=== PATIENT | male | born 1940 | race Caucasian/White ===

== ENCOUNTER → 2018-03-10 | Outpatient (CLI) | payer MEDICARE, OTHER ==
[~2018-03-10] MED LIST: CAND16TA2 PO; GLIM4TAB2 PO; LOVA40TA2 PO
== END | disposition home or self-care (01) ==
LOC: CACL 09:37 → EDSTATUS 12:15
PROVIDERS: ATTEND Internal Medicine Cardiovascular Disease
DX: Z02.9 Encounter for administrative examinations, unspecified (principal); Z53.9 Procedure and treatment not carried out, unspecified reason
CPT/HCPCS: 85060; 85097; 88184; 88185; 88237; 88264; 88280; 88305; 88311

== ENCOUNTER 2018-08-29 12:05 | Day surgery (SDC) | payer MEDICARE, OTHER ==
[~2018-08-29] VITALS: Ht 172.7 cm; Wt 83.1 kg
[~2018-08-29 12:05] MED LIST changes: -CAND16TA2 PO; +CAND16TA25 PO; +GLIM1TAB2 PO; +OMEP-110 PO; +POTA10TA PO; +TORS20TA PO
[2018-08-29 12:43] VITALS: BP 163/73
[2018-08-29] MEDS ORDERED: SODIUM CHLORIDE 0.9% 1,000 ML IV SCH (12:46)
[2018-08-29] MEDS ORDERED: VANCOMYCIN PMX 1GM/200ML 200 ML IV ONE (12:49)
[2018-08-29] MEDS ORDERED: LIDOCAINE 1%, 20ML ONE (13:20)
[2018-08-29] MEDS ORDERED: FENTANYL PF 100 MCG/2ML ONE (14:59)
[2018-08-29] MEDS ORDERED: MIDAZOLAM 1 MG/ML, 5ML ONE (15:00)
[2018-08-29] MEDS ORDERED: FLUMAZENIL 0.1 MG/1 ML, 5ML ONE (15:00)
[2018-08-29] MEDS ORDERED: NALOXONE 1 MG/ML, 2ML ONE (15:00)
[2018-08-29] MEDS ORDERED: LIDOCAINE-MPF 1%, 5ML ONE (15:27)
== END 2018-08-29 17:15 | disposition home or self-care (01) ==
LOC: OUT 12:05
PROVIDERS: ATTEND Internal Medicine Hematology & Oncology
DX: Z45.2 Encounter for adjustment and management of vascular access device (principal); C92.00 Acute myeloblastic leukemia, not having achieved remission; E11.9 Type 2 diabetes mellitus without complications; E78.00 Pure hypercholesterolemia, unspecified; Z98.890 Other specified postprocedural states; Z88.1 Allergy status to other antibiotic agents; Z79.84 Long term (current) use of oral hypoglycemic drugs
CPT/HCPCS: 36561; 76937; 77001; 99156; 99157; C1788; C1894; J1642; J2250; J3010; J3370; J3490; J7030; J2310

== ENCOUNTER 2018-10-12 07:24 | Day surgery (SDC) | payer MEDICARE, OTHER ==
[~2018-10-12] VITALS: Ht 175.3 cm; Wt 81.6 kg
[~2018-10-12 07:24] MED LIST changes: +ACET500T76 PO; +DOXY100C15 PO; +TAMS-11 PO
[2018-10-12] MEDS ORDERED: SODIUM CHLORIDE 0.9% 1,000 ML IV SCH (08:08)
[2018-10-12 08:11] VITALS: BP 144/73
[2018-10-12 08:52] LABS: BASOPHILS # (AUTO) 0.01 x10^3/uL (0-0.1); BASOPHILS % (AUTO) 0 % (0-1); EOSINOPHILS # (AUTO) 0.13 x10^3/uL (0-0.4); EOSINOPHILS % (AUTO) 3 % (1-7); LYMPHOCYTES # (AUTO) 1.73 x10^3/uL (1-3.4); LYMPHOCYTES % (AUTO) 36 % (22-44); MD NO; MEAN CORPUSCULAR HEMOGLOBIN 32.4 pg (27.5-34.5); MEAN CORPUSCULAR HGB CONC 34.3 g/dL (33.2-36.2); MEAN CORPUSCULAR VOLUME 94.4 fL (81-97); MEAN PLATELET VOLUME 8.3 fL (7.4-10.4); MONOCYTES # (AUTO) 0.22 x10^3/uL (0.2-0.8); MONOCYTES % (AUTO) 5 % (2-9); NEUTROPHILS % (AUTO) 56 % (42-75); PLATELET COUNT 112 x10^3/uL (130-400); RED BLOOD COUNT 3.74 x10^6/uL (4.38-5.82); RED CELL DISTRIBUTION WIDTH 15.3 % (9.4-14.8)
[2018-10-12] MEDS ORDERED: FENTANYL PF 100 MCG/2ML ONE ×2 (09:54→09:55)
[2018-10-12] MEDS ORDERED: MIDAZOLAM 1 MG/ML, 5ML ONE ×2 (09:55)
[2018-10-12] MEDS ORDERED: FLUMAZENIL 0.1 MG/1 ML, 5ML ONE (09:55)
[2018-10-12] MEDS ORDERED: NALOXONE 1 MG/ML, 2ML ONE (09:55)
== END 2018-10-12 11:40 | disposition home or self-care (01) ==
LOC: OUT 07:24
PROVIDERS: ATTEND Internal Medicine Hematology & Oncology
DX: C95.90 Leukemia, unspecified not having achieved remission (principal); E11.9 Type 2 diabetes mellitus without complications; E78.00 Pure hypercholesterolemia, unspecified; Z98.890 Other specified postprocedural states; Z88.8 Allergy status to other drugs, medicaments and biological substances; Z79.84 Long term (current) use of oral hypoglycemic drugs
CPT/HCPCS: 36415; 38222; 77012; 85025; 85060; 85097; 88237; 88264; 88280; 88305; 88311; 88313; 99156; J2250; J3010; 99157; J2310

== ENCOUNTER 2019-01-18 07:12 | Day surgery (SDC) | payer MEDICARE, OTHER ==
[~2019-01-18] VITALS: Ht 175.3 cm; Wt 84.5 kg
[2019-01-18] MEDS ORDERED: SODIUM CHLORIDE 0.9% 1,000 ML IV SCH (07:50)
[2019-01-18 08:21] VITALS: BP 130/65
[2019-01-18] MEDS ORDERED: LIDOCAINE-MPF 1%, 5ML ONE ×2 (08:45→08:57)
[2019-01-18] MEDS ORDERED: MIDAZOLAM 1 MG/ML, 5ML ONE (09:05)
[2019-01-18] MEDS ORDERED: FENTANYL PF 100 MCG/2ML ONE (09:05)
[2019-01-18] MEDS ORDERED: NALOXONE 1 MG/ML, 2ML ONE (09:05)
[2019-01-18] MEDS ORDERED: FLUMAZENIL 0.1 MG/1 ML, 5ML ONE (09:05)
[2019-01-18 09:07] LABS: MD YES; MEAN CORPUSCULAR HEMOGLOBIN 34.5 pg (27.5-34.5); MEAN CORPUSCULAR HGB CONC 34.1 g/dL (33.2-36.2); MEAN CORPUSCULAR VOLUME 101.4 fL (81-97); MEAN PLATELET VOLUME 7.5 fL (7.4-10.4); PLATELET COUNT 82 x10^3/uL (130-400); RED BLOOD COUNT 2.76 x10^6/uL (4.38-5.82); RED CELL DISTRIBUTION WIDTH 18.4 % (9.4-14.8)
[2019-01-18 09:21] LABS: BASOS#(MANUAL) 0.02 x10^3/uL (0-0.1); BASOS% (MANUAL) 1 % (0-1); EOS#(MANUAL) 0.02 x10^3/uL (0.0-0.4); EOS% (MANUAL) 1 % (1-7); LYMPH#(MANUAL) 1.37 x10^3/uL (1-3.4); LYMPHS% (MANUAL) 91 % (22-44); MONOS#(MANUAL) 0.03 x10^3/uL (0.3-2.7); MONOS% (MANUAL) 2 % (2-9); SEG#(MANUAL) 0.03 x10^3/uL (1.8-6.8); SEGS% (MANUAL) 2 % (42-75)
[2019-01-18 09:27] LABS: ANISOCYTOSIS 1+; OTHER CELLS # (MANUAL) 0.05 x10^3/uL (0-0); OTHER CELLS % (MANUAL) 3 % (0-0)
[2019-01-18 09:28] LABS: <PLATELET ESTIMATE> DECREASED; <PLT MORPHOLOGY> NORMAL PLT MORPH; OVALOCYTES 1+
== END 2019-01-18 10:40 | disposition home or self-care (01) ==
LOC: OUT 07:12
PROVIDERS: ATTEND Internal Medicine Hematology & Oncology
DX: C92.00 Acute myeloblastic leukemia, not having achieved remission (principal); D61.818 Other pancytopenia; D69.6 Thrombocytopenia, unspecified; E11.9 Type 2 diabetes mellitus without complications; E78.00 Pure hypercholesterolemia, unspecified; Z79.84 Long term (current) use of oral hypoglycemic drugs; Z79.899 Other long term (current) drug therapy; Z88.8 Allergy status to other drugs, medicaments and biological substances
CPT/HCPCS: 36415; 38222; 77012; 85025; 85097; 88237; 88264; 88280; 88305; 88311; 88313; 99156; 99157; J2250; J3010; J7030; 85060; J2310

== ENCOUNTER 2019-05-08 07:02 | Day surgery (SDC) | payer MEDICARE, OTHER ==
[~2019-05-08] VITALS: Ht 175.3 cm; Wt 78.4 kg
[~2019-05-08 07:02] MED LIST changes: +ACYC-114 PO; +ALLO300T PO; -GLIM1TAB2 PO; +GLIM1TAB3 PO; -GLIM4TAB2 PO; +GLIM4TAB4 PO; +LEVO750T6 PO; +ONDA8TAB15 PO; +[UNRECOGNIZED DRUG - CODE] PO
[2019-05-08] MEDS ORDERED: SODIUM CHLORIDE 0.9% 1,000 ML IV SCH (07:49)
[2019-05-08 07:50] VITALS: BP 127/63
[2019-05-08] MEDS ORDERED: PLEASE ENTER HEIGHT AND WEIGHT MC SCH (08:00)
[2019-05-08] MEDS ORDERED: FLUMAZENIL 0.1 MG/1 ML, 5ML ONE (08:21)
[2019-05-08] MEDS ORDERED: FENTANYL PF 100 MCG/2ML ONE (08:21)
[2019-05-08] MEDS ORDERED: NALOXONE 1 MG/ML, 2ML ONE (08:21)
[2019-05-08] MEDS ORDERED: MIDAZOLAM 1 MG/ML, 5ML ONE ×2 (08:21)
[2019-05-21] MEDS ORDERED: DOXY100C PO (11:51)
== END 2019-05-08 10:10 | disposition home or self-care (01) ==
LOC: OUT 07:02
PROVIDERS: ATTEND Internal Medicine Hematology & Oncology
DX: C92.00 Acute myeloblastic leukemia, not having achieved remission (principal)
CPT/HCPCS: 38222; 77012; 85097; 88184; 88185; 88237; 88264; 88280; 88305; 88311; 88313; 88360; 88374; 99156; 99157; J1642; J2250; J3010; J7030; J2310

== ENCOUNTER 2019-08-03 08:25 | Day surgery (SDC) | payer MEDICARE, OTHER ==
[~2019-08-03] VITALS: Ht 175.3 cm; Wt 83.6 kg
[~2019-08-03 08:25] MED LIST changes: +DOXY100C PO; -GLIM1TAB3 PO; +GLIM1TAB7 PO; -GLIM4TAB4 PO; +GLIM4TAB8 PO; -ONDA8TAB15 PO; +ONDA8TAB18 PO
[2019-08-03 09:07] VITALS: BP 111/79
[2019-08-03 10:14] LABS: MEAN CORPUSCULAR HEMOGLOBIN 30.2 pg (27.5-34.5); MEAN CORPUSCULAR HGB CONC 34.8 g/dL (33.2-36.2); MEAN CORPUSCULAR VOLUME 86.7 fL (81-97); MEAN PLATELET VOLUME 9.7 fL (7.4-10.4); RED BLOOD COUNT 2.66 x10^6/uL (4.38-5.82); RED CELL DISTRIBUTION WIDTH 17.2 % (9.4-14.8)
[2019-08-03 10:17] LABS: MD YES; PLATELET COUNT 17 x10^3/uL (130-400)
[2019-08-03 10:33] LABS: LYMPH#(MANUAL) 0.65 x10^3/uL (1-3.4); LYMPHS% (MANUAL) 72 % (22-44); MONOS#(MANUAL) 0.05 x10^3/uL (0.3-2.7); MONOS% (MANUAL) 5 % (2-9); SEG#(MANUAL) 0.06 x10^3/uL (1.8-6.8); SEGS% (MANUAL) 7 % (42-75)
[2019-08-03 10:34] LABS: BLASTS # (MANUAL) 0.14 x10^3/uL (0-0); BLASTS % (MANUAL) 16 % (0-0); NRBC % (MANUAL) 10 % (0-1)
[2019-08-03 10:35] LABS: <PLATELET ESTIMATE> DECREASED; <PLT MORPHOLOGY> NORMAL PLT MORPH; ANISOCYTOSIS 1+; OVALOCYTES 1+
[2019-08-03] MEDS ORDERED: NALOXONE 1 MG/ML, 2ML ONE (11:04)
[2019-08-03] MEDS ORDERED: FLUMAZENIL 0.1 MG/1 ML, 5ML ONE (11:04)
[2019-08-03] MEDS ORDERED: FENTANYL PF 100 MCG/2ML ONE (11:04)
[2019-08-03] MEDS ORDERED: MIDAZOLAM 1 MG/ML, 5ML ONE (11:04)
[2019-08-04] MEDS ORDERED: POTA99TA2 PO (15:00)
[2019-08-10] MEDS ORDERED: DOXY100T PO (11:40)
[2019-08-10] MEDS ORDERED: DEXA0.5E2 PO (11:40)
[2019-08-10] MEDS ORDERED: CEPH-376 PO (11:40)
[2019-08-10] MEDS ORDERED: LYSI500T8 PO (11:40)
== END 2019-08-03 12:45 | disposition home or self-care (01) ==
LOC: OUT 08:25
PROVIDERS: ATTEND Internal Medicine Hematology & Oncology
DX: C92.00 Acute myeloblastic leukemia, not having achieved remission (principal); D69.6 Thrombocytopenia, unspecified; E11.22 Type 2 diabetes mellitus with diabetic chronic kidney disease; I12.9 Hypertensive chronic kidney disease with stage 1 through stage 4 chronic kidney disease, or unspecified chronic kidney disease; N18.2 Chronic kidney disease, stage 2 (mild); Z88.1 Allergy status to other antibiotic agents; Z79.84 Long term (current) use of oral hypoglycemic drugs
CPT/HCPCS: 36415; 38222; 77012; 85025; 85097; 88305; 88311; 88313; 88341; 88342; 88360; 99156; 99157; J2250; J3010; J2310

== ENCOUNTER 2019-08-08 17:40 | Emergency (ER) | payer MEDICARE, OTHER ==
[~2019-08-08] VITALS: Ht 175.3 cm; Wt 80.0 kg
[~2019-08-08 17:40] MED LIST changes: +POTA99TA2 PO
--- NOTE | 2019-08-08 18:03 | NUR ---
BREAK RN: CONTACT WITH PT. 78 YR OLD MALE [facility], "SENT HIM DOWN HERE FOR REGULAR BLOOD WORK. HAD BONE MARROW BIOPSY ON TUESDAY. RECEIVED 1 UNIT PRBC AND 1 UNIT OF PLATELETS TODAY" PT WITH PORT IN RIGHT UPPER CHEST. LEFT ACCESSED BY [facility]. PTS AT BEDSIDE. NO NEEDS EXPRESSED AT THIS TIME.
--- NOTE | 2019-08-08 18:22 | NUR ---
DR TOMAS AT BEDSIDE TO HELEN PT
--- NOTE | 2019-08-08 18:33 | NUR ---
REPORT TO DAYO VILLEGAS
--- NOTE | 2019-08-08 18:47 | NUR ---
PT AMBULATORY TO AND FROM [place] [facility] W/ OUT INCIDENT; GAIT STEADY. VOIDED SPECIMEN PROVIDED. PT REPORTS HE RECEIVED HIS TWO INFUSIONS TODAY: PLATELETS AND PACKED CELLS. STATES STAFF WAS CONCERNED ABOUT HIS ELEVATED TEMP DURING INFUSION. PT HAS NO OTHER COMPLAINTS AT THIS TIME.
[2019-08-08] MEDS ORDERED: [UNRECOGNIZED DRUG - CODE] PO (18:55)
[2019-08-08] MEDS ORDERED: DIPH1TAB6 PO (18:55)
[2019-08-08] MEDS ORDERED: POTA10TA PO (18:55)
[2019-08-08] MEDS ORDERED: FURO20TA3 PO (18:55)
--- NOTE | 2019-08-08 18:58 | NUR ---
LABS AND CXR DONE. BLD CX BAND ON PT'S WRIST.
[2019-08-08 19:11] LABS: MICROSCOPIC NOT IND
[2019-08-08 19:14] LABS: CULTURE INDICATED? NO
[2019-08-08 19:57] VITALS: BP 126/54
--- NOTE | 2019-08-08 20:30 | NUR ---
BLOOD CX DRAWN FROM PORT. PT WANTS TO GO HOME; ERP AWARE
--- NOTE | 2019-08-08 21:00 | NUR ---
PT DRESSED, AWAITING DC, STATES HE WILL NOT STAY. SPOUSE IN ROOM
[2019-08-08] MEDS ORDERED: LEVOFLOXACIN 750 MG TABLET ONE (21:13)
--- NOTE | 2019-08-08 21:23 | NUR ---
HEPARIN RECEIVED FROM PHARMACY.
[2019-08-08] MEDS ORDERED: LEVOFLOXACIN 750 MG TABLET PO ONE (21:30)
[2019-08-10] MEDS ORDERED: CEPH-376 PO (11:40)
[2019-08-10] MEDS ORDERED: DEXA0.5E2 PO (11:40)
[2019-08-10] MEDS ORDERED: DOXY100T PO (11:40)
[2019-08-10] MEDS ORDERED: LYSI500T8 PO (11:40)
== END 2019-08-08 21:28 | disposition left against medical advice (07) ==
LOC: ED 19:45
DX: D70.9 Neutropenia, unspecified (principal); R50.81 Fever presenting with conditions classified elsewhere; E78.00 Pure hypercholesterolemia, unspecified; E11.9 Type 2 diabetes mellitus without complications
CPT/HCPCS: 36415; 71045; 81003; 83605; 84145; 87040; 99284; J1642; 99291

== ENCOUNTER 2019-08-15 11:25 | Inpatient (IN) | payer MEDICARE, OTHER ==
[~2019-08-15] VITALS: Ht 175.3 cm; Wt 83.6 kg
[~2019-08-15 11:25] MED LIST changes: +CEPH-376 PO; +DEXA0.5E2 PO; +DIPH1TAB6 PO; +DOXY100T PO; +FURO20TA3 PO; +LYSI500T8 PO
[2019-08-15] MEDS ORDERED: ACETAMINOPHEN 500 MG TABLET ONE (11:42)
[2019-08-15] MEDS ORDERED: SODIUM CHLORIDE FLUSH 10ML SYR IVF ONE (12:00)
[2019-08-15] MEDS ORDERED: ACETAMINOPHEN 500 MG TABLET PO ONE (12:00)
[2019-08-15] MEDS ORDERED: AZITHROMYCIN 500 MG in SODIUM CHLORIDE 0.9% 250 ML IVPB ONE (12:30)
[2019-08-15] MEDS ORDERED: CEFTRIAXONE PMX 1GM/50ML 50 ML IVPB ONE (12:30)
[2019-08-15 12:41] LABS: ALBUMIN 2.8 g/dL (3.4-5.0); ANION GAP 11 mmol/L (5-15); CALCIUM 8.5 mg/dL (8.5-10.1); CHLORIDE 102 mmol/L (98-107); CREATININE 1.74 mg/dL (0.7-1.3)
[2019-08-15 12:53] LABS: INTERNATIONAL NORMALIZED RATIO 1.17 (0.93-1.1); PROTHROMBIN TIME 12.4 Seconds (9.6-11.5)
[2019-08-15 12:56] LABS: MEAN CORPUSCULAR HEMOGLOBIN 29.4 pg (27.5-34.5); MEAN CORPUSCULAR HGB CONC 34.3 g/dL (33.2-36.2); MEAN CORPUSCULAR VOLUME 85.8 fL (81-97); MEAN PLATELET VOLUME 8.4 fL (7.4-10.4); RED BLOOD COUNT 2.76 x10^6/uL (4.38-5.82); RED CELL DISTRIBUTION WIDTH 15.9 % (9.4-14.8)
[2019-08-15 12:57] LABS: PLATELET COUNT 17 x10^3/uL (130-400)
[2019-08-15] MEDS ORDERED: CEFTRIAXONE PMX 1GM/50ML 50 ML ONE (13:02)
[2019-08-15 13:10] LABS: MD YES
[2019-08-15 13:28] LABS: LYMPH#(MANUAL) 0.28 x10^3/uL (1-3.4); LYMPHS% (MANUAL) 46 % (22-44); MONOS#(MANUAL) 0.04 x10^3/uL (0.3-2.7); MONOS% (MANUAL) 6 % (2-9); SEG#(MANUAL) 0.13 x10^3/uL (1.8-6.8); SEGS% (MANUAL) 22 % (42-75)
[2019-08-15 13:35] LABS: BLASTS # (MANUAL) 0.16 x10^3/uL (0-0); BLASTS % (MANUAL) 26 % (0-0); NRBC % (MANUAL) 5 % (0-1)
[2019-08-15 13:37] LABS: <PLATELET ESTIMATE> DECREASED; <PLT MORPHOLOGY> NORMAL PLT MORPH; ANISOCYTOSIS 1+
[2019-08-15 13:41] LABS: OVALOCYTES 1+
[2019-08-15] MEDS ORDERED: SODIUM CHLORIDE FLUSH 10ML SYR IVF PRN (14:00)
[2019-08-15] MEDS: CEFTRIAXONE PMX 1GM/50ML 50 ML IV SCH (14:30)
[2019-08-15] MEDS ORDERED: hydrALAzine 20 MG/ML, 1ML IVPush PRN (14:30)
[2019-08-15] MEDS: AZITHROMYCIN 500 MG in SODIUM CHLORIDE 0.9% 250 ML IV SCH (14:30)
[2019-08-15] MEDS ORDERED: ONDANSETRON 2MG/ML, 2ML IVPush PRN (14:30)
[2019-08-15] MEDS ORDERED: OXYcodone IR 5MG TABLET PO PRN (14:30)
[2019-08-15 15:37] VITALS: BP 94/50
[2019-08-15] MEDS: ACETAMINOPHEN 325 MG TABLET PO PRN (16:12)
[2019-08-15 19:03] VITALS: BP 105/44
[2019-08-15] MEDS: LOVASTATIN 40 MG TABLET PO SCH (20:53)
[2019-08-15 21:36] LABS: RAPID INFLUENZA A Negative (Negative); RAPID INFLUENZA B Negative (Negative)
[2019-08-16 00:20] VITALS: BP 103/47
[2019-08-16] MEDS: ACETAMINOPHEN 325 MG TABLET PO PRN ×3 (00:32→21:11)
[2019-08-16 05:51] LABS: ANION GAP 5 mmol/L (5-15); CALCIUM 8.7 mg/dL (8.5-10.1); CHLORIDE 107 mmol/L (98-107); CREATININE 1.44 mg/dL (0.7-1.3)
[2019-08-16 05:57] LABS: MEAN CORPUSCULAR HEMOGLOBIN 29.8 pg (27.5-34.5); MEAN CORPUSCULAR VOLUME 85.3 fL (81-97); MEAN PLATELET VOLUME 7.6 fL (7.4-10.4); RED BLOOD COUNT 2.59 x10^6/uL (4.38-5.82); RED CELL DISTRIBUTION WIDTH 16.3 % (9.4-14.8)
[2019-08-16 05:58] LABS: PLATELET COUNT 12 x10^3/uL (130-400)
[2019-08-16 06:01] LABS: MD YES
[2019-08-16 06:10] LABS: ANISOCYTOSIS 1+; BLASTS # (MANUAL) 0.13 x10^3/uL (0-0); LYMPH#(MANUAL) 0.35 x10^3/uL (1-3.4); LYMPHS% (MANUAL) 50 % (22-44); MONOS#(MANUAL) 0.05 x10^3/uL (0.3-2.7); MONOS% (MANUAL) 7 % (2-9); SEG#(MANUAL) 0.17 x10^3/uL (1.8-6.8); SEGS% (MANUAL) 24 % (42-75)
[2019-08-16 06:11] LABS: <PLATELET ESTIMATE> DECREASED; <PLT MORPHOLOGY> NORMAL PLT MORPH; OVALOCYTES 1+
[2019-08-16 06:12] LABS: BLASTS % (MANUAL) 19 % (0-0)
[2019-08-16 08:24] VITALS: BP 103/48
[2019-08-16] MEDS: ENASIDENIB MESYLATE PO SCH ×2 (08:37→13:31)
[2019-08-16] MEDS: INSULIN LISPRO 100 UNITS/ML, PEN SQ-INSULIN SCH ×3 (11:00→21:00)
[2019-08-16] MEDS: CEFTRIAXONE PMX 1GM/50ML 50 ML IV SCH (13:53)
[2019-08-16 14:00] VITALS: BP 100/51
[2019-08-16] MEDS: AZITHROMYCIN 500 MG in SODIUM CHLORIDE 0.9% 250 ML IV SCH (15:08)
[2019-08-16] MEDS: DEXAMETHASONE 0.5 MG/5 ML ORAL SOL PO SCH ×2 (16:17→21:25)
[2019-08-16 18:28] VITALS: BP 136/58
[2019-08-16] MEDS: LOVASTATIN 40 MG TABLET PO SCH (21:01)
[2019-08-17] VITALS (8 sets, daily range): BP systolic 107–131; BP diastolic 44–58
[2019-08-17] MEDS: DEXAMETHASONE 0.5 MG/5 ML ORAL SOL PO SCH ×4 (05:45→21:08)
[2019-08-17 05:51] LABS: MEAN CORPUSCULAR HEMOGLOBIN 29.7 pg (27.5-34.5); MEAN CORPUSCULAR HGB CONC 34.5 g/dL (33.2-36.2); MEAN CORPUSCULAR VOLUME 85.8 fL (81-97); MEAN PLATELET VOLUME 9.4 fL (7.4-10.4); RED CELL DISTRIBUTION WIDTH 16.1 % (9.4-14.8)
[2019-08-17 06:01] LABS: ANION GAP 7 mmol/L (5-15); CHLORIDE 103 mmol/L (98-107); PLATELET COUNT 11 x10^3/uL (130-400)
[2019-08-17 06:03] LABS: CREATININE 1.27 mg/dL (0.7-1.3)
[2019-08-17 06:12] LABS: MD YES
[2019-08-17 06:32] LABS: LYMPH#(MANUAL) 0.54 x10^3/uL (1-3.4); LYMPHS% (MANUAL) 60 % (22-44); MONOS#(MANUAL) 0.23 x10^3/uL (0.3-2.7); MONOS% (MANUAL) 25 % (2-9); SEG#(MANUAL) 0.05 x10^3/uL (1.8-6.8); SEGS% (MANUAL) 5 % (42-75)
[2019-08-17 06:34] LABS: BLASTS # (MANUAL) 0.09 x10^3/uL (0-0); BLASTS % (MANUAL) 10 % (0-0); NRBC % (MANUAL) 9 % (0-1)
[2019-08-17 06:38] LABS: <PLATELET ESTIMATE> DECREASED; ANISOCYTOSIS 1+; OVALOCYTES 1+
[2019-08-17 06:39] LABS: <PLT MORPHOLOGY> NORMAL PLT MORPH
[2019-08-17] MEDS: INSULIN LISPRO 100 UNITS/ML, PEN SQ-INSULIN SCH ×4 (07:00→21:25)
[2019-08-17] MEDS: ENASIDENIB MESYLATE PO SCH (09:00)
[2019-08-17] MEDS: ACETAMINOPHEN 325 MG TABLET PO PRN ×2 (10:00→21:07)
[2019-08-17] MEDS ORDERED: DIPHENHYDRAMINE 50 MG/ML, 1ML IVPush ONE (11:00)
[2019-08-17] MEDS ORDERED: ACETAMINOPHEN 325 MG TABLET PO ONE (12:00)
[2019-08-17] MEDS: HYDROCORTISONE 100 MG INJ. IVPush PRN (12:44)
[2019-08-17] MEDS: CEFTRIAXONE PMX 1GM/50ML 50 ML IV SCH (14:33)
[2019-08-17] MEDS: AZITHROMYCIN 500 MG in SODIUM CHLORIDE 0.9% 250 ML IV SCH (15:21)
[2019-08-17] MEDS: LOVASTATIN 40 MG TABLET PO SCH (21:08)
[2019-08-18 00:37] VITALS: BP 115/56
[2019-08-18] MEDS: DEXAMETHASONE 0.5 MG/5 ML ORAL SOL PO SCH ×4 (03:25→20:18)
[2019-08-18] MEDS: ACETAMINOPHEN 325 MG TABLET PO PRN ×3 (03:30→15:47)
[2019-08-18 06:09] LABS: ANION GAP 5 mmol/L (5-15); CALCIUM 8.5 mg/dL (8.5-10.1); CHLORIDE 106 mmol/L (98-107); CREATININE 1.04 mg/dL (0.7-1.3)
[2019-08-18 06:30] LABS: MEAN CORPUSCULAR HEMOGLOBIN 29.5 pg (27.5-34.5); MEAN CORPUSCULAR HGB CONC 34.5 g/dL (33.2-36.2); MEAN CORPUSCULAR VOLUME 85.5 fL (81-97); MEAN PLATELET VOLUME 8.9 fL (7.4-10.4); RED BLOOD COUNT 2.44 x10^6/uL (4.38-5.82); RED CELL DISTRIBUTION WIDTH 15.8 % (9.4-14.8)
[2019-08-18 06:31] LABS: MD YES; PLATELET COUNT 21 x10^3/uL (130-400)
[2019-08-18 06:42] LABS: BLASTS # (MANUAL) 0.04 x10^3/uL (0-0); MONOS#(MANUAL) 0.13 x10^3/uL (0.3-2.7); MONOS% (MANUAL) 26 % (2-9); NRBC % (MANUAL) 10 % (0-1)
[2019-08-18 06:43] VITALS: BP 124/56
[2019-08-18 06:46] LABS: ANISOCYTOSIS 1+; LYMPH#(MANUAL) 0.32 x10^3/uL (1-3.4); LYMPHS% (MANUAL) 64 % (22-44); SEG#(MANUAL) 0.02 x10^3/uL (1.8-6.8); SEGS% (MANUAL) 3 % (42-75)
[2019-08-18 06:47] LABS: <PLATELET ESTIMATE> DECREASED; <PLT MORPHOLOGY> NORMAL PLT MORPH; OVALOCYTES 1+
[2019-08-18 06:48] LABS: BLASTS % (MANUAL) 7 % (0-0)
[2019-08-18] MEDS: INSULIN LISPRO 100 UNITS/ML, PEN SQ-INSULIN SCH ×2 (07:00→11:00)
[2019-08-18] MEDS: ENASIDENIB MESYLATE PO SCH (09:00)
[2019-08-18] MEDS: DIPHENOXYLATE/ATROPINE TABLET PO PRN (09:31)
[2019-08-18] MEDS: CEFEPIME 2 GM in DEXTROSE 5% 100 ML IV SCH ×2 (10:35→18:13)
[2019-08-18 13:13] VITALS: BP 132/44
[2019-08-18] MEDS: AZITHROMYCIN 500 MG in SODIUM CHLORIDE 0.9% 250 ML IV SCH (15:47)
[2019-08-18 18:13] VITALS: BP 101/57
[2019-08-18 20:14] VITALS: BP 91/49
[2019-08-18] MEDS ORDERED: GLIMEPIRIDE 1 MG TABLET PO SCH (21:00)
[2019-08-18] MEDS: LOVASTATIN 40 MG TABLET PO SCH (21:00)
[2019-08-19] VITALS (17 sets, daily range): BP systolic 81–110; BP diastolic 42–57
[2019-08-19] MEDS: CEFEPIME 2 GM in DEXTROSE 5% 100 ML IV SCH ×3 (01:15→22:26)
[2019-08-19] MEDS: ACETAMINOPHEN 325 MG TABLET PO PRN (06:06)
[2019-08-19] MEDS: DEXAMETHASONE 0.5 MG/5 ML ORAL SOL PO SCH ×4 (06:07→21:14)
[2019-08-19 06:45] LABS: MEAN CORPUSCULAR HEMOGLOBIN 29.4 pg (27.5-34.5); MEAN CORPUSCULAR HGB CONC 34.6 g/dL (33.2-36.2); MEAN CORPUSCULAR VOLUME 84.9 fL (81-97); RED BLOOD COUNT 2.28 x10^6/uL (4.38-5.82); RED CELL DISTRIBUTION WIDTH 16.4 % (9.4-14.8)
[2019-08-19 06:47] LABS: ALANINE AMINOTRANSFERASE 43 U/L (12-78); ALBUMIN 2.2 g/dL (3.4-5.0); ANION GAP 8 mmol/L (5-15); CALCIUM 8.5 mg/dL (8.5-10.1); CHLORIDE 104 mmol/L (98-107)
[2019-08-19 06:50] LABS: ALKALINE PHOSPHATASE 86 U/L (45-117); BILIRUBIN,TOTAL 2.5 mg/dL (0.2-1.0); CREATININE 1.82 mg/dL (0.7-1.3); TOTAL PROTEIN 5.8 g/dL (6.4-8.2)
[2019-08-19 07:14] LABS: MD YES
[2019-08-19 07:20] LABS: NRBC % (MANUAL) 3 % (0-1); SEG#(MANUAL) 0.04 x10^3/uL (1.8-6.8); SEGS% (MANUAL) 6 % (42-75)
[2019-08-19 07:21] LABS: BLASTS # (MANUAL) 0.06 x10^3/uL (0-0); LYMPH#(MANUAL) 0.38 x10^3/uL (1-3.4); LYMPHS% (MANUAL) 54 % (22-44); MONOS#(MANUAL) 0.22 x10^3/uL (0.3-2.7); MONOS% (MANUAL) 31 % (2-9)
[2019-08-19 07:22] LABS: MEAN PLATELET VOLUME 9.1 fL (7.4-10.4)
[2019-08-19 07:23] LABS: <PLATELET ESTIMATE> DECREASED; <PLT MORPHOLOGY> NORMAL PLT MORPH; ANISOCYTOSIS 1+; BLASTS % (MANUAL) 9 % (0-0); OVALOCYTES 1+; PLATELET COUNT 16 x10^3/uL (130-400)
[2019-08-19] MEDS ORDERED: SODIUM CHLORIDE 0.9% 1,000 ML IV ONE (07:30)
[2019-08-19] MEDS: INSULIN LISPRO 100 UNITS/ML, PEN SQ-INSULIN SCH ×2 (08:00→10:32)
[2019-08-19] MEDS ORDERED: SULFAMETH./TRIMETHOPRIM DS 800MG/160MG TABLET PO SCH (09:00)
[2019-08-19] MEDS: ENASIDENIB MESYLATE PO SCH (09:07)
[2019-08-19] MEDS: MICAFUNGIN 100 MG in SODIUM CHLORIDE 0.9% 100 ML IV SCH (09:07)
[2019-08-19] MEDS ORDERED: SODIUM CHLORIDE 0.9% 1,000ML IVBOLUS ONE ×2 (10:00→17:00)
[2019-08-19] MEDS ORDERED: DEXAMETHASONE 0.5 MG TABLET ONE (10:31)
[2019-08-19] MEDS: HYDROCORTISONE 100 MG INJ. IVPush PRN (11:00)
[2019-08-19] MEDS: SODIUM CHLORIDE 0.9% 1,000 ML IV SCH ×2 (11:34→21:17)
[2019-08-19] MEDS: LINEZOLID PMX 600MG/300ML 300 ML IV SCH ×2 (11:44→23:36)
[2019-08-19] MEDS: GLIMEPIRIDE 1 MG TABLET PO SCH (13:29)
[2019-08-19 17:46] LABS: MICROSCOPIC INDICATED
[2019-08-19 18:05] LABS: CULTURE INDICATED? NO
[2019-08-19] MEDS: LOVASTATIN 40 MG TABLET PO SCH (21:00)
[2019-08-20 03:00] VITALS: BP 98/50
[2019-08-20 03:09] LABS: MEAN CORPUSCULAR HEMOGLOBIN 29.8 pg (27.5-34.5); MEAN CORPUSCULAR VOLUME 87.8 fL (81-97); MEAN PLATELET VOLUME 8.8 fL (7.4-10.4); RED CELL DISTRIBUTION WIDTH 15.7 % (9.4-14.8)
[2019-08-20 03:14] LABS: ALANINE AMINOTRANSFERASE 43 U/L (12-78); ALBUMIN 2.1 g/dL (3.4-5.0); ANION GAP 9 mmol/L (5-15); CALCIUM 8.2 mg/dL (8.5-10.1); CHLORIDE 107 mmol/L (98-107); CREATININE 1.92 mg/dL (0.7-1.3)
[2019-08-20 03:17] LABS: ALKALINE PHOSPHATASE 87 U/L (45-117); BILIRUBIN,TOTAL 2.4 mg/dL (0.2-1.0); TOTAL PROTEIN 5.8 g/dL (6.4-8.2)
[2019-08-20 03:40] LABS: PLATELET COUNT 23 x10^3/uL (130-400)
[2019-08-20 03:43] LABS: MD YES
[2019-08-20 04:10] LABS: BAND#(MANUAL) 0.04 x10^3/uL; BANDS%(MANUAL) 3 % (0-7); LYMPHS% (MANUAL) 25 % (22-44); MONOS#(MANUAL) 0.56 x10^3/uL (0.3-2.7); MONOS% (MANUAL) 47 % (2-9); SEG#(MANUAL) 0.18 x10^3/uL (1.8-6.8); SEGS% (MANUAL) 15 % (42-75)
[2019-08-20 04:11] LABS: <PLATELET ESTIMATE> DECREASED; ANISOCYTOSIS 1+; BLASTS # (MANUAL) 0.12 x10^3/uL (0-0); BLASTS % (MANUAL) 10 % (0-0); NRBC % (MANUAL) 2 % (0-1); OVALOCYTES 1+
[2019-08-20 04:12] LABS: <PLT MORPHOLOGY> NORMAL PLT MORPH
[2019-08-20] MEDS: DEXAMETHASONE 0.5 MG/5 ML ORAL SOL PO SCH ×4 (05:57→21:53)
[2019-08-20 07:14] VITALS: BP 85/58
[2019-08-20] MEDS: GLIMEPIRIDE 1 MG TABLET PO SCH ×3 (08:00→15:57)
[2019-08-20] MEDS: SODIUM CHLORIDE 0.9% 1,000 ML IV SCH ×2 (08:25→19:49)
[2019-08-20] MEDS: ENASIDENIB MESYLATE PO SCH (08:28)
[2019-08-20] MEDS: DIPHENOXYLATE/ATROPINE TABLET PO PRN (09:10)
[2019-08-20 09:19] LABS: CLOSTRIDIUM DIFFICILE ANTIGEN NEGATIVE; CLOSTRIDIUM DIFFICILE TOXIN NEGATIVE (Negative)
[2019-08-20] MEDS: CEFEPIME 2 GM in DEXTROSE 5% 100 ML IV SCH ×2 (09:31→21:52)
[2019-08-20] MEDS: MICAFUNGIN 100 MG in SODIUM CHLORIDE 0.9% 100 ML IV SCH (11:41)
[2019-08-20 13:44] VITALS: BP 101/61
[2019-08-20] MEDS: LINEZOLID PMX 600MG/300ML 300 ML IV SCH (14:17)
[2019-08-20 18:45] VITALS: BP 110/57
[2019-08-20] MEDS: LOVASTATIN 40 MG TABLET PO SCH (21:00)
[2019-08-21] MEDS: LINEZOLID PMX 600MG/300ML 300 ML IV SCH ×2 (01:13→13:32)
[2019-08-21 03:05] VITALS: BP 103/54
[2019-08-21 03:23] LABS: ALANINE AMINOTRANSFERASE 93 U/L (12-78); ALBUMIN 1.8 g/dL (3.4-5.0); ANION GAP 9 mmol/L (5-15); CALCIUM 7.9 mg/dL (8.5-10.1); CHLORIDE 111 mmol/L (98-107); CREATININE 1.55 mg/dL (0.7-1.3)
[2019-08-21 03:26] LABS: ALKALINE PHOSPHATASE 107 U/L (45-117); BILIRUBIN,TOTAL 1.6 mg/dL (0.2-1.0); TOTAL PROTEIN 5.1 g/dL (6.4-8.2)
[2019-08-21 04:03] LABS: MEAN CORPUSCULAR HEMOGLOBIN 29.4 pg (27.5-34.5); MEAN CORPUSCULAR HGB CONC 33.4 g/dL (33.2-36.2); MEAN PLATELET VOLUME 8.6 fL (7.4-10.4); RED BLOOD COUNT 2.89 x10^6/uL (4.38-5.82); RED CELL DISTRIBUTION WIDTH 16.2 % (9.4-14.8)
[2019-08-21 04:20] LABS: MD YES
[2019-08-21 04:23] LABS: LYMPH#(MANUAL) 0.24 x10^3/uL (1-3.4); LYMPHS% (MANUAL) 47 % (22-44); MONOS% (MANUAL) 40 % (2-9); PLATELET COUNT 18 x10^3/uL (130-400); SEG#(MANUAL) 0.01 x10^3/uL (1.8-6.8); SEGS% (MANUAL) 2 % (42-75)
[2019-08-21 04:24] LABS: BLASTS # (MANUAL) 0.06 x10^3/uL (0-0); BLASTS % (MANUAL) 11 % (0-0); NRBC % (MANUAL) 4 % (0-1)
[2019-08-21 04:25] LABS: ANISOCYTOSIS 1+; OVALOCYTES 1+
[2019-08-21 04:26] LABS: <PLATELET ESTIMATE> DECREASED; <PLT MORPHOLOGY> NORMAL PLT MORPH
[2019-08-21] MEDS: DEXAMETHASONE 0.5 MG/5 ML ORAL SOL PO SCH ×4 (05:11→22:25)
[2019-08-21] MEDS: SODIUM CHLORIDE 0.9% 1,000 ML IV SCH (05:12)
[2019-08-21 07:24] VITALS: BP 101/44
[2019-08-21] MEDS: GLIMEPIRIDE 1 MG TABLET PO SCH ×2 (08:00→16:46)
[2019-08-21] MEDS ORDERED: LACTATED RINGERS 1,000 ML IV SCH (08:30)
[2019-08-21] MEDS: ENASIDENIB MESYLATE PO SCH (08:57)
[2019-08-21] MEDS: MICAFUNGIN 100 MG in SODIUM CHLORIDE 0.9% 100 ML IV SCH (09:05)
[2019-08-21] MEDS: CEFEPIME 2 GM in DEXTROSE 5% 100 ML IV SCH ×2 (10:37→22:18)
[2019-08-21] MEDS: maalox/diphenh/lido/sucralfate 5 ML PO SCH ×2 (11:00→16:49)
[2019-08-21 14:15] VITALS: BP 110/59
[2019-08-21 19:01] VITALS: BP 110/53
[2019-08-21] MEDS: LOVASTATIN 40 MG TABLET PO SCH (20:00)
[2019-08-22] VITALS (7 sets, daily range): BP systolic 108–117; BP diastolic 49–58
[2019-08-22] MEDS: maalox/diphenh/lido/sucralfate 5 ML PO SCH ×5 (01:19→21:02)
[2019-08-22] MEDS: LINEZOLID PMX 600MG/300ML 300 ML IV SCH ×2 (01:19→13:10)
[2019-08-22 05:34] LABS: MEAN CORPUSCULAR HEMOGLOBIN 29.9 pg (27.5-34.5); MEAN CORPUSCULAR HGB CONC 34.3 g/dL (33.2-36.2); MEAN CORPUSCULAR VOLUME 87.2 fL (81-97); MEAN PLATELET VOLUME 10.1 fL (7.4-10.4); RED BLOOD COUNT 2.94 x10^6/uL (4.38-5.82); RED CELL DISTRIBUTION WIDTH 16.9 % (9.4-14.8)
[2019-08-22 05:41] LABS: PLATELET COUNT 10 x10^3/uL (130-400)
[2019-08-22 05:45] LABS: ANION GAP 6 mmol/L (5-15); CALCIUM 8.1 mg/dL (8.5-10.1); CHLORIDE 111 mmol/L (98-107)
[2019-08-22 05:50] LABS: ALANINE AMINOTRANSFERASE 139 U/L (12-78); ALKALINE PHOSPHATASE 173 U/L (45-117); BILIRUBIN,TOTAL 2.5 mg/dL (0.2-1.0); TOTAL PROTEIN 5.4 g/dL (6.4-8.2)
[2019-08-22 05:53] LABS: MD YES
[2019-08-22 05:59] LABS: LYMPH#(MANUAL) 0.28 x10^3/uL (1-3.4); LYMPHS% (MANUAL) 46 % (22-44); MONOS#(MANUAL) 0.28 x10^3/uL (0.3-2.7); MONOS% (MANUAL) 47 % (2-9); SEG#(MANUAL) 0.01 x10^3/uL (1.8-6.8); SEGS% (MANUAL) 2 % (42-75)
[2019-08-22 06:02] LABS: ANISOCYTOSIS 1+; BLASTS # (MANUAL) 0.03 x10^3/uL (0-0); BLASTS % (MANUAL) 5 % (0-0); NRBC % (MANUAL) 1 % (0-1); OVALOCYTES 1+
[2019-08-22 06:03] LABS: <PLATELET ESTIMATE> DECREASED; <PLT MORPHOLOGY> NORMAL PLT MORPH
[2019-08-22] MEDS: DEXAMETHASONE 0.5 MG/5 ML ORAL SOL PO SCH ×4 (08:14→21:03)
[2019-08-22] MEDS: GLIMEPIRIDE 1 MG TABLET PO SCH ×2 (08:14→16:51)
[2019-08-22] MEDS: ENASIDENIB MESYLATE PO SCH (08:15)
[2019-08-22] MEDS: MICAFUNGIN 100 MG in SODIUM CHLORIDE 0.9% 100 ML IV SCH (08:15)
[2019-08-22] MEDS ORDERED: LACTATED RINGERS 1,000 ML IV SCH (08:30)
[2019-08-22] MEDS: CEFEPIME 2 GM in DEXTROSE 5% 100 ML IV SCH ×2 (09:40→22:22)
[2019-08-22] MEDS: HYDROCORTISONE 100 MG INJ. IVPush PRN (11:01)
[2019-08-22] MEDS: FUROSEMIDE 20 MG TABLET PO SCH (16:51)
[2019-08-23 00:38] VITALS: BP 114/55
[2019-08-23] MEDS: LINEZOLID PMX 600MG/300ML 300 ML IV SCH ×2 (01:04→13:03)
[2019-08-23 05:49] LABS: ALANINE AMINOTRANSFERASE 161 U/L (12-78); ANION GAP 6 mmol/L (5-15); CALCIUM 8.4 mg/dL (8.5-10.1); CHLORIDE 112 mmol/L (98-107); CREATININE 1.22 mg/dL (0.7-1.3)
[2019-08-23 05:51] LABS: MEAN CORPUSCULAR HEMOGLOBIN 30.2 pg (27.5-34.5); MEAN CORPUSCULAR HGB CONC 34.2 g/dL (33.2-36.2); MEAN CORPUSCULAR VOLUME 88.2 fL (81-97); RED BLOOD COUNT 2.75 x10^6/uL (4.38-5.82); RED CELL DISTRIBUTION WIDTH 16.6 % (9.4-14.8)
[2019-08-23 05:52] LABS: ALKALINE PHOSPHATASE 169 U/L (45-117); BILIRUBIN,TOTAL 2.4 mg/dL (0.2-1.0); TOTAL PROTEIN 5.4 g/dL (6.4-8.2)
[2019-08-23 06:13] LABS: MEAN PLATELET VOLUME 9.4 fL (7.4-10.4)
[2019-08-23 06:14] LABS: MD YES
[2019-08-23 06:21] LABS: MONOS#(MANUAL) 0.22 x10^3/uL (0.3-2.7); MONOS% (MANUAL) 31 % (2-9)
[2019-08-23 06:22] LABS: BLASTS # (MANUAL) 0.08 x10^3/uL (0-0); BLASTS % (MANUAL) 12 % (0-0); NRBC % (MANUAL) 1 % (0-1); PLATELET COUNT 24 x10^3/uL (130-400)
[2019-08-23 06:23] LABS: LYMPH#(MANUAL) 0.39 x10^3/uL (1-3.4); LYMPHS% (MANUAL) 56 % (22-44); SEG#(MANUAL) 0.01 x10^3/uL (1.8-6.8); SEGS% (MANUAL) 1 % (42-75)
[2019-08-23 06:24] LABS: <PLATELET ESTIMATE> DECREASED; <PLT MORPHOLOGY> NORMAL PLT MORPH; ANISOCYTOSIS 1+; OVALOCYTES 1+
[2019-08-23] MEDS ORDERED: POTASSIUM CHLORIDE 20 MEQ TAB.ER.PRT PO SCH (08:00)
[2019-08-23 08:01] VITALS: BP 107/56
[2019-08-23] MEDS: ASCORBIC ACID 500 MG TABLET PO SCH (08:23)
[2019-08-23] MEDS: FUROSEMIDE 20 MG TABLET PO SCH (08:24)
[2019-08-23] MEDS: MICAFUNGIN 100 MG in SODIUM CHLORIDE 0.9% 100 ML IV SCH (08:24)
[2019-08-23] MEDS: ENASIDENIB MESYLATE PO SCH (08:25)
[2019-08-23] MEDS: GLIMEPIRIDE 1 MG TABLET PO SCH ×2 (08:25→16:29)
[2019-08-23] MEDS: DEXAMETHASONE 0.5 MG/5 ML ORAL SOL PO SCH ×4 (08:26→21:45)
[2019-08-23] MEDS: maalox/diphenh/lido/sucralfate 5 ML PO SCH ×4 (08:26→21:45)
[2019-08-23] MEDS: CEFEPIME 2 GM in DEXTROSE 5% 100 ML IV SCH ×2 (09:36→21:43)
[2019-08-23 14:35] VITALS: BP 111/61
[2019-08-23 19:35] VITALS: BP 107/53
[2019-08-24 00:05] VITALS: BP 121/51
[2019-08-24] MEDS: LINEZOLID PMX 600MG/300ML 300 ML IV SCH ×2 (00:47→12:31)
[2019-08-24 07:32] VITALS: BP_SYST 102; BP_SYST 98; BP_DIAS 46; BP_DIAS 48
[2019-08-24] MEDS: GLIMEPIRIDE 1 MG TABLET PO SCH ×2 (08:00→17:00)
[2019-08-24] MEDS: DEXAMETHASONE 0.5 MG/5 ML ORAL SOL PO SCH ×4 (08:00→21:02)
[2019-08-24] MEDS: maalox/diphenh/lido/sucralfate 5 ML PO SCH ×4 (08:00→21:02)
[2019-08-24 08:19] LABS: ALANINE AMINOTRANSFERASE 155 U/L (12-78); ANION GAP 4 mmol/L (5-15); CALCIUM 8.2 mg/dL (8.5-10.1); CHLORIDE 111 mmol/L (98-107); CREATININE 1.14 mg/dL (0.7-1.3)
[2019-08-24 08:21] LABS: ALKALINE PHOSPHATASE 163 U/L (45-117); BILIRUBIN,TOTAL 2.5 mg/dL (0.2-1.0); TOTAL PROTEIN 5.1 g/dL (6.4-8.2)
[2019-08-24 08:28] LABS: MEAN CORPUSCULAR HEMOGLOBIN 29.8 pg (27.5-34.5); MEAN CORPUSCULAR HGB CONC 33.7 g/dL (33.2-36.2); MEAN CORPUSCULAR VOLUME 88.3 fL (81-97); MEAN PLATELET VOLUME 9.8 fL (7.4-10.4); RED BLOOD COUNT 2.74 x10^6/uL (4.38-5.82); RED CELL DISTRIBUTION WIDTH 16.5 % (9.4-14.8)
[2019-08-24 08:37] LABS: PLATELET COUNT 20 x10^3/uL (130-400)
[2019-08-24 08:39] LABS: MD YES
[2019-08-24 08:56] LABS: LYMPH#(MANUAL) 0.41 x10^3/uL (1-3.4); LYMPHS% (MANUAL) 69 % (22-44); MONOS#(MANUAL) 0.12 x10^3/uL (0.3-2.7); MONOS% (MANUAL) 20 % (2-9); SEG#(MANUAL) 0.04 x10^3/uL (1.8-6.8); SEGS% (MANUAL) 7 % (42-75)
[2019-08-24 08:57] LABS: <PLATELET ESTIMATE> DECREASED; <PLT MORPHOLOGY> NORMAL PLT MORPH; ANISOCYTOSIS 1+; BLASTS # (MANUAL) 0.02 x10^3/uL (0-0); BLASTS % (MANUAL) 4 % (0-0); OVALOCYTES 1+
[2019-08-24] MEDS: ENASIDENIB MESYLATE PO SCH (09:00)
[2019-08-24] MEDS: MICAFUNGIN 100 MG in SODIUM CHLORIDE 0.9% 100 ML IV SCH (09:12)
[2019-08-24] MEDS: ASCORBIC ACID 500 MG TABLET PO SCH (09:13)
[2019-08-24] MEDS ORDERED: FUROSEMIDE 20 MG TABLET PO SCH (10:30)
[2019-08-24] MEDS ORDERED: POTASSIUM CHLORIDE 20 MEQ TAB.ER.PRT PO SCH (10:30)
[2019-08-24] MEDS: CEFEPIME 2 GM in DEXTROSE 5% 100 ML IV SCH ×2 (10:44→21:58)
[2019-08-24 12:42] VITALS: BP 120/56
[2019-08-24 19:52] VITALS: BP 113/49
[2019-08-25] MEDS: LINEZOLID PMX 600MG/300ML 300 ML IV SCH (01:28)
[2019-08-25 01:33] VITALS: BP 111/49
[2019-08-25 05:35] LABS: MEAN CORPUSCULAR HEMOGLOBIN 29.4 pg (27.5-34.5); MEAN CORPUSCULAR HGB CONC 33.6 g/dL (33.2-36.2); MEAN CORPUSCULAR VOLUME 87.6 fL (81-97); RED BLOOD COUNT 2.65 x10^6/uL (4.38-5.82); RED CELL DISTRIBUTION WIDTH 16.4 % (9.4-14.8)
[2019-08-25 05:42] LABS: CHLORIDE 111 mmol/L (98-107)
[2019-08-25 05:48] LABS: ALANINE AMINOTRANSFERASE 113 U/L (12-78); ALKALINE PHOSPHATASE 150 U/L (45-117); ANION GAP 6 mmol/L (5-15); BILIRUBIN,TOTAL 2.7 mg/dL (0.2-1.0); CALCIUM 8.2 mg/dL (8.5-10.1); CREATININE 1.11 mg/dL (0.7-1.3); TOTAL PROTEIN 5.2 g/dL (6.4-8.2)
[2019-08-25 06:06] LABS: MEAN PLATELET VOLUME 9.7 fL (7.4-10.4)
[2019-08-25 06:10] LABS: PLATELET COUNT 14 x10^3/uL (130-400)
[2019-08-25] MEDS: maalox/diphenh/lido/sucralfate 5 ML PO SCH ×4 (06:21→21:00)
[2019-08-25] MEDS: DEXAMETHASONE 0.5 MG/5 ML ORAL SOL PO SCH ×4 (06:21→21:00)
[2019-08-25 06:29] LABS: MD YES
[2019-08-25 06:48] LABS: LYMPH#(MANUAL) 0.55 x10^3/uL (1-3.4); LYMPHS% (MANUAL) 78 % (22-44); MONOS#(MANUAL) 0.02 x10^3/uL (0.3-2.7); MONOS% (MANUAL) 3 % (2-9); SEG#(MANUAL) 0.11 x10^3/uL (1.8-6.8); SEGS% (MANUAL) 16 % (42-75)
[2019-08-25 06:49] LABS: <PLATELET ESTIMATE> DECREASED; <PLT MORPHOLOGY> NORMAL PLT MORPH; ANISOCYTOSIS 1+; BLASTS # (MANUAL) 0.02 x10^3/uL (0-0); BLASTS % (MANUAL) 3 % (0-0); OVALOCYTES 1+
[2019-08-25 07:27] VITALS: BP 100/53
[2019-08-25] MEDS: GLIMEPIRIDE 1 MG TABLET PO SCH ×2 (08:00→16:38)
[2019-08-25] MEDS: ASCORBIC ACID 500 MG TABLET PO SCH (08:41)
[2019-08-25] MEDS: MICAFUNGIN 100 MG in SODIUM CHLORIDE 0.9% 100 ML IV SCH (08:41)
[2019-08-25] MEDS: ENASIDENIB MESYLATE PO SCH (08:44)
[2019-08-25] MEDS: FUROSEMIDE 20 MG TABLET PO SCH (08:47)
[2019-08-25] MEDS: CEFEPIME 2 GM in DEXTROSE 5% 100 ML IV SCH (10:19)
[2019-08-25] MEDS: LEVOFLOXACIN 750 MG TABLET PO SCH (11:42)
[2019-08-25] MEDS: POTASSIUM CHLORIDE 20 MEQ TAB.ER.PRT PO SCH (16:39)
[2019-08-25 19:25] VITALS: BP 119/43
[2019-08-26 02:17] VITALS: BP 114/50
[2019-08-26] MEDS: DEXAMETHASONE 0.5 MG/5 ML ORAL SOL PO SCH ×3 (05:37→16:59)
[2019-08-26] MEDS: maalox/diphenh/lido/sucralfate 5 ML PO SCH ×3 (05:37→16:59)
[2019-08-26 05:50] LABS: MEAN CORPUSCULAR HEMOGLOBIN 30.1 pg (27.5-34.5); MEAN CORPUSCULAR HGB CONC 34.3 g/dL (33.2-36.2); MEAN CORPUSCULAR VOLUME 87.6 fL (81-97); MEAN PLATELET VOLUME 9.8 fL (7.4-10.4); RED BLOOD COUNT 2.51 x10^6/uL (4.38-5.82); RED CELL DISTRIBUTION WIDTH 16.4 % (9.4-14.8)
[2019-08-26 05:57] LABS: PLATELET COUNT 11 x10^3/uL (130-400)
[2019-08-26 06:22] LABS: MD YES
[2019-08-26 06:41] LABS: BLASTS # (MANUAL) 0.04 x10^3/uL (0-0); BLASTS % (MANUAL) 5 % (0-0); LYMPH#(MANUAL) 0.57 x10^3/uL (1-3.4); LYMPHS% (MANUAL) 81 % (22-44); MONOS#(MANUAL) 0.07 x10^3/uL (0.3-2.7); MONOS% (MANUAL) 10 % (2-9); SEG#(MANUAL) 0.03 x10^3/uL (1.8-6.8); SEGS% (MANUAL) 4 % (42-75)
[2019-08-26 06:42] LABS: <PLATELET ESTIMATE> DECREASED; <PLT MORPHOLOGY> NORMAL PLT MORPH; ANISOCYTOSIS 1+; OVALOCYTES 1+
[2019-08-26 08:16] VITALS: BP 106/42
[2019-08-26] MEDS: ENASIDENIB MESYLATE PO SCH (09:00)
[2019-08-26] MEDS: GLIMEPIRIDE 1 MG TABLET PO SCH ×2 (09:29→16:59)
[2019-08-26] MEDS: LEVOFLOXACIN 750 MG TABLET PO SCH (09:29)
[2019-08-26] MEDS: FUROSEMIDE 20 MG TABLET PO SCH (09:29)
[2019-08-26] MEDS: ASCORBIC ACID 500 MG TABLET PO SCH (09:29)
[2019-08-26] MEDS ORDERED: POTA20TA6 PO (13:06)
[2019-08-26] MEDS ORDERED: ASCO500T6 PO (13:06)
[2019-08-26] MEDS ORDERED: LEVO750T26 PO (13:06)
[2019-08-26 13:12] VITALS: BP 116/56
[2019-08-26] MEDS: HYDROCORTISONE 100 MG INJ. IVPush PRN (15:02)
[2019-08-26 15:17] VITALS: BP 108/50
[2019-08-26 15:35] VITALS: BP 112/49
[2019-08-26 16:30] VITALS: BP 120/50
[2019-08-26] MEDS ORDERED: POTASSIUM CHLORIDE 20 MEQ TAB.ER.PRT PO SCH (17:00)
== END 2019-08-26 18:03 | disposition home or self-care (01) | DRG 871 ==
LOC: ED 12:35 → SUATTDRO 13:46 → EDIP 13:59 → 4NW 15:33
PROVIDERS: ADMIT Hospitalist; ATTEND Internal Medicine
PROC: 30233N1 Transfusion of Nonautologous Red Blood Cells into Peripheral Vein, Percutaneous Approach (ICD-10-PCS; 2019-08-17)
PROC: 30233R1 Transfusion of Nonautologous Platelets into Peripheral Vein, Percutaneous Approach (ICD-10-PCS; principal; 2019-08-19)
DX: A41.9 Sepsis, unspecified organism (principal); J15.9 Unspecified bacterial pneumonia; N17.0 Acute kidney failure with tubular necrosis; D61.818 Other pancytopenia; C92.02 Acute myeloblastic leukemia, in relapse; E87.2 Acidosis; E87.1 Hypo-osmolality and hyponatremia; C92.00 Acute myeloblastic leukemia, not having achieved remission; B00.9 Herpesviral infection, unspecified; D89.9 Disorder involving the immune mechanism, unspecified; E11.9 Type 2 diabetes mellitus without complications; E78.00 Pure hypercholesterolemia, unspecified; E54 Ascorbic acid deficiency; E78.5 Hyperlipidemia, unspecified; E80.4 Gilbert syndrome; R50.81 Fever presenting with conditions classified elsewhere; Z87.891 Personal history of nicotine dependence
CPT/HCPCS: 36415; 36591; 70100; 71045; 71046; 71250; 80048; 80053; 81001; 82040; 82180; 82962; 83605; 83615; 83735; 84100; 84145; 85025; 85610; 85730; 86644; 86645; 86850; 86900; 86923; 87040; 87081; 87324; 87400; 87449; 87496; 87806; 93005; 96365; 96367; 96375; G0378; J0456; J0696; J2020; J2248; G0475; J1720; J1815; J7030; J7050; J7120; P9037; P9040